=== PATIENT | female | born 2000 | race Caucasian/White ===

== ENCOUNTER 2019-10-02 11:36 | Emergency (ER) | payer OTHER, SELFPAY ==
--- NOTE | 2019-10-02 11:40 | ED.GENADULT ---
HPI - General Adult General Chief complaint: Upper Respiratory Infection Stated complaint: sore throat Time Seen by Provider: 10/02/19 12:23 Source: patient Mode of arrival: ambulatory Limitations: no limitations History of Present Illness HPI narrative: 19-year-old female patient presents to the [facility] with complaints of a sore throat for the past 4 days. Patient states she has had strep before in the past. Patient states that her boyfriend has had similar symptoms and was tested for globin and he was negative. Patient denies any fevers that she is aware of. Patient denies any coughing, ear pain, chest pain or shortness of breath. Related Data Home Medications Medication Instructions Recorded Confirmed No Home Medications 10/02/19 10/02/19 Allergies Allergy/AdvReac Type Severity Reaction Status Date / Time No Known Allergies Allergy Verified 10/02/19 11:53 Review of Systems Review of Systems: Narrative: CONSTITUTIONAL: Denies fever, chills, or sweats. EYES: Denies visual changes, redness, or discharge. ENT: Denies rhinorrhea, congestion, positive sore throat, denies otalgia. CARDIOVASCULAR: Denies chest pain, palpitations, or edema. RESPIRATORY: Denies cough or dyspnea. GASTROINTESTINAL: Denies abdominal pain, nausea, vomiting, or diarrhea. GENITOURINARY: Denies dysuria or hematuria. SKIN: Denies rash or itching. MUSCULOSKELETAL: Denies back pain, joint pain, or myalgia. NEUROLOGIC: Denies headache, numbness, or weakness. PSYCHIATRIC: Denies anxiety or depression. PMFSH Comments At the time of my signature I agree with nursing past medical history, surgical, social, and family history. There is no relevant family history pertinent to the presenting complaint. Exam Narrative: Exam Narrative: GENERAL: Well-appearing, well-nourished, and in no acute distress. HEAD: Normocephalic, atraumatic. No tenderness noted to frontal or maxillary sinuses on palpation EYES: PERRLA and EOMI. ENT: Nares clear, no rhinorrhea or epistaxis. Mucous membranes moist. Posterior pharynx with erythema and 1+ tonsil enlargement on the left side. There is no exudates or lesions present. Bilateral TMs are clear no erythema or foreign bodies in the canal. NECK: Supple. Left-sided cervical lymphadenopathy CHEST: Clear to auscultation. No respiratory distress. HEART: Regular rate and rhythm. No murmur heard. Normal peripheral pulses. ABDOMEN: Soft, nontender, nondistended, normal active bowel sounds. EXTREMITIES: Normal range of motion. No edema. SKIN: Warm, dry, no rash. NEURO: No focal deficits. Alert and oriented x3. Course Vital Signs Vital signs: Vital Signs Temperature 37.4 C 10/02/19 11:46 Pulse Rate 77 10/02/19 11:46 Respiratory Rate 16 10/02/19 11:46 Blood Pressure 101/54 L 10/02/19 11:46 Pulse Oximetry 100 10/02/19 11:46 Temperature 37.4 C 10/02/19 11:46 Pulse Rate 77 10/02/19 11:46 Respiratory Rate 16 10/02/19 11:46 Blood Pressure 101/54 L 10/02/19 11:46 Pulse Oximetry 100 10/02/19 11:46 Vital signs reviewed. Medical Decision Making Differential Diagnosis Differential Diagnosis: Differential diagnosis: Viral pharyngitis, pharyngitis, group A strep, infectious mononucleosis, gonococcal pharyngitis, exudative pharyngitis, oral candidiasis. Chronic allergies, postnasal drip, GERD, abscess formation, but glottitis, retropharyngeal abscess formation, or airway obstruction. Discussed with patient that we did test her for strep and mono in the clinic today and she is negative for both. Discussed with her that given her symptoms of the sore throat which is a common symptom of the COVID-19 I would advise her to get tested for COVID-19. Discussed with her that I really do not recommend that she return to work until she has testing done. Patient does not agree with this plan of care and does agree with the testing at this time. Discussed with her I will take her off work until she has the r
[2019-10-02 11:46] VITALS: BP 101/54; PULSE 77; RESP 16; TEMP 37.4; O2SAT 100
== END 2019-10-02 12:38 | disposition home or self-care (01) ==
PROVIDERS: Emergency Provider Nurse Practitioner Family; PCP Pediatrics
DX: Z20.828 Contact with and (suspected) exposure to other viral communicable diseases (principal); J02.9 Acute pharyngitis, unspecified
CPT/HCPCS: 36416; 86308; 87081; 87880; 99213; G0463

== ENCOUNTER 2022-02-04 08:35 | Emergency (ER) | payer BC, SELFPAY ==
[2022-02-04 08:46] VITALS: BP 105/67; PULSE 78; RESP 16; TEMP 37.2; O2SAT 100
--- NOTE | 2022-02-04 09:12 | ED.URI ---
HPI - URI/Sore Throat General Chief Complaint: Upper Respiratory Infection Stated Complaint: SORE THROAT/EARACHE/NASAL CONGESITON/FACIAL PAIN Time Seen by Provider: 02/04/22 09:12 Source: patient, RN notes reviewed and old records reviewed Mode of arrival: ambulatory Limitations: no limitations History of Present Illness HPI Narrative: 21-year-old female presents to [facility] with complaints of sore throat, cough, nose stuffy, face hurts, body aches for the past 5 days. Patient reports that she was on airplane 2 days ago and her left ear never popped, she states that she had previous ear infection about a month ago. Patient reports that she has head and body aches also. Patient reports that she has had COVID vaccinations no booster no flu shot. patient has been taking multi-symptoms Mucinex. MD elicited complaint: cough, rhinorrhea, nasal congestion and other ( left ear pain, body aches) Pertinent past history: other (recent travel and ear infection) Onset (ago): day(s) (5 days) Pain scale (0-10): 3 Able to tolerate fluids by mouth: Yes Treatments prior to arrival: other (mucinex) Related Data Home Medications Medication Instructions Recorded Confirmed norethindrone 1 mg-ethinyl 1 tablet PO DAILY 02/04/22 02/04/22 estradiol 10 mcg (24)-iron 10 mcg(2) tablet (Lo Loestrin Fe) Allergies Allergy/AdvReac Type Severity Reaction Status Date / Time No Known Allergies Allergy Verified 02/04/22 08:50 Review of Systems Review of Systems: CONSTITUTIONAL: Reports malaise, chills, sweats, or fever. EYES: Denies visual changes, redness, or discharge. ENT: Reports rhinorrhea, congestion, sinus pain,left otalgia and sore throat. CARDIOVASCULAR: Denies chest pain, palpitations, or edema. RESPIRATORY: Reports cough.? Denies dyspnea. GASTROINTESTINAL: Denies abdominal pain, nausea, vomiting, diarrhea SKIN: Denies rash or itching. MUSCULOSKELETAL:Reports myalgia. NEUROLOGIC: Denies headache. All systems reviewed & are unremarkable except as noted in HPI and below PMFSH Past Medical History Medical History (Updated 02/04/22 @ 10:43 by Yuli Baker NP) Strep pharyngitis Surgical History Surgical History (Updated 02/04/22 @ 10:42 by Yuli Baker NP) History of placement of ear tubes Comments At time of signature, agree with nursing past medical, surgical, social and family history. There is no relevant family history pertinent to the presenting complaint Exam Narrative: GENERAL: ill-appearing, well-nourished, and in no acute distress. HEAD: Normocephalic EYES: PERRLA, conjunctivae clear, eyes glassy looking ENT: Nares clear, turbinates edematous and erythematous, clear discharge. Mucous membranes moist ;Left TM red and bulging, right TM pearly caban with dull light reflex; no tragal tenderness. Oropharynx erythematous without lesions. Tonsils not enlarged and without exudate, no drooling, no hoarseness, no trismus, uvula midline. NECK: Supple. No lymphadenopathy CHEST: Clear to auscultation, breath sounds equal. No wheezing, rhonchi, rales, or stridor. No respiratory distress, speaks in full sentences.SAO2 100% on room air HEART: Regular rate and rhythm. No murmur heard. SKIN: Warm, dry, no rash. NEURO: Alert and oriented x3. PSYCH: Normal mood and affect Course Course Emergency Course: Patient is aware of diagnosis, understands and agrees to treatment plan.? Anticipatory guidance given.? Patient agrees to follow-up as directed and is aware of reasons to seek care at the emergency department. Portions of this record may have been created with voice recognition software Level of Care: Express Care Visit Vital Signs Vital signs: Vital Signs Temperature 37.2 C 02/04/22 08:46 Pulse Rate 78 02/04/22 08:46 Respiratory Rate 16 02/04/22 08:46 Blood Pressure 105/67 02/04/22 08:46 Pulse Oximetry 100 02/04/22 08:46 Temperature 37.2 C 02/04/22 08:46 P
== END 2022-02-04 09:41 | disposition home or self-care (01) ==
PROVIDERS: Emergency Provider Registered Nurse
DX: U07.1 COVID-19 (principal); H66.92 Otitis media, unspecified, left ear
CPT/HCPCS: 87426; 87804; 99213; C9803; G0463

== ENCOUNTER 2022-03-09 11:55 | Emergency (ER) | payer BC, SELFPAY ==
[2022-03-09 12:06] VITALS: BP 121/86; PULSE 97; RESP 16; TEMP 37.1; O2SAT 99
--- NOTE | 2022-03-09 12:43 | ED.EAR ---
HPI - Ear Problem General Chief complaint: Ear Stated complaint: abdominal pain, ear infection Time Seen by Provider: 03/09/22 12:43 Source: patient, RN notes reviewed and old records reviewed Mode of arrival: ambulatory Limitations: no limitations History of Present Illness HPI Narrative: 21 year old female who presents to [facility] with complaints of right lower quadrant pain which started last evening around 5pm which is sharp. Patient reports that she has called her [employer] this morning and she talked to Nurse practitioner and was told to take test which she did that was negative. She states that she was then placed on hold for over and hour.Patient reports that she had normal period from Feb 06- then 2 weeks later she started cycle again and bled for 10-11 days. Patient reports that she started bleeding again this morning and has cramping but pain in her right lower quadrant is different than cramps and is sharp, with tenderness noted on palpation. Patient denies any vomiting or diarrhea reports some feelings of nausea.Patient was treated with oral antibiotics on the 04 of February for ear infection of left ear, patient states some left ear pain also today. MD Complaint: ear pain and other (right lower abdominal pain) Location: left ear Discharge from ear: Reports no Treatment prior to arrival: other (took Midol) Related Data Home Medications Medication Instructions Recorded Confirmed norethindrone 1 mg-ethinyl 1 tablet PO DAILY 02/04/22 03/09/22 estradiol 10 mcg (24)-iron 10 mcg(2) tablet (Lo Loestrin Fe) Allergies Allergy/AdvReac Type Severity Reaction Status Date / Time No Known Allergies Allergy Verified 02/04/22 08:50 Review of Systems Review of Systems: CONSTITUTIONAL: Denies fever, chills, or sweats. ENT: Denies rhinorrhea, congestion, sore throat, reports left otalgia. CARDIOVASCULAR: Denies chest pain, palpitations, or edema. RESPIRATORY: Denies cough or dyspnea. GASTROINTESTINAL: Reports sharp right lower abdominal pain, nausea, no vomiting, diarrhea, cramping also GENITOURINARY: Denies dysuria or hematuria. SKIN: Denies rash or itching. MUSCULOSKELETAL: Denies back pain, joint pain, or myalgia. NEUROLOGIC: Denies headache, numbness, or weakness. All systems reviewed & are unremarkable except as noted in HPI and below PMFSH Past Medical History Medical History (Updated 03/11/22 @ 13:18 by Yuli Baker NP) Ear infection Strep pharyngitis Surgical History Surgical History History of placement of ear tubes Social History Social History (Updated 03/09/22 @ 13:46 by Yuli Baker NP) Smoking status: Never smoker Alcohol intake: never Substance use: never Comments At time of signature, agree with nursing past medical, surgical, social and family history. There is no relevant family history pertinent to the presenting complaint Exam Narrative: GENERAL: Well-appearing, well-nourished, and in no acute distress. HEAD: Normocephalic, atraumatic. EYES: PERRLA, conjunctivae clear, and EOMI. ENT: Nares clear. Mucous membranes moist. Oropharynx without edema, erythema, or lesions. Tonsils not enlarged and without exudate.left ear discomfort with no drainage NECK: Supple. No lymphadenopathy CHEST: Speaks in full sentences. No respiratory distress. HEART: Regular rate and rhythm. ABDOMEN: Soft, flat, nondistended. right lower abdominal guarding, no rebound tenderness, or rigid. No pulsatilla masses. Bowel sounds present in all four quadrants. No organomegaly. Negative Hayden?s sign. No periumbilical tenderness. No Supra public tenderness or distension. Good femoral pulses bilaterally. No hernia noted. No scars or surface trauma. SKIN: Warm, dry, no rash. NEURO:? Alert and oriented x3. PSYCH: Normal mood and affect Course Course Emergency Course: Patient is aware of diagnosis, understands
== END 2022-03-09 13:48 | disposition short-term general hospital (02) ==
PROVIDERS: Emergency Provider Registered Nurse
DX: R10.31 Right lower quadrant pain (principal); H92.02 Otalgia, left ear
CPT/HCPCS: 81003; 81025; 99212; G0463